=== PATIENT | female | born 1980 | race African-American/Black ===

== ENCOUNTER 2017-02-25 23:21 | Emergency (ER) | payer SELFPAY ==
[~2017-02-25] VITALS: Ht 160 cm; Wt 88.0 kg
[~2017-02-25 23:21] MED LIST: IBUP600T26 PO
[2017-02-25 23:34] VITALS: BP 151/95; PULSE 103; RESP 18; TEMP 98.8; O2SAT 97
--- NOTE | 2017-02-26 04:45 | PD ---
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 Patient states last visit. Was November 28. Patient denies having a period during December or January. Patient states a home test was positive. Patient states yesterday she started noticing some pelvic cramping and then last evening noticed some vaginal bleeding. Patient states she bled quite a bit. Patient states just prior to coming to the emergency room she passed a large amount of tissue. Patient states she flush this. Patient states subsequently she's had some intermittent cramping pain but it has decreased in intensity. Patient is 3 para 1 AB 1. 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 Patient denies any other concerns. Patient takes no medications. PFSH Past Medical History Narrative Medical Ab1; no tobacco use; nursing notes reviewed Medical History: Denies Significant Hx Tetanus Vaccination: Unknown Influenza Vaccination: No ?: LMP: 12/26/16 : 2 Para: 0 Miscarriage: 1 Dilation and Curettage (D&C): Yes Social History Alcohol Use: Yes (rare) Tobacco Use: No Substance Use: No Allergies-Medications (Allergen,Severity, Reaction): Coded Allergies: No Known Allergies (Unverified , 02/26/17) Reported Meds & Prescriptions Reported Meds & Active Scripts Active No Active Prescriptions or Reported Medications Review of Systems Except as stated in HPI: all other systems reviewed are Neg General / Constitutional: No: Fever, Chills HENT: No: Congestion Cardiovascular: No: Chest Pain or Discomfort Gastrointestinal: Positive: Abdominal Pain, No: Nausea, Vomiting Genitourinary: Positive: Pelvic Pain, Vaginal Bleeding, No: Dysuria Musculoskeletal: No: Myalgias, Arthralgias Neurologic: No: Weakness Psychiatric: No: Anxiety Hematologic/Lymphatic: No: Lymph Node Enlargement Physical Exam Narrative GENERAL: Well-developed well-nourished female in no acute distress no respiratory distress SKIN: Warm and dry. HEAD: Normocephalic. EYES: No scleral icterus. No injection or drainage. NECK: Supple, trachea midline. No JVD or lymphadenopathy. CARDIOVASCULAR: Regular rate and rhythm without murmurs, gallops, or rubs. RESPIRATORY: Breath sounds equal bilaterally. No accessory muscle use. GASTROINTESTINAL: Abdomen soft, mild tenderness to direct palpation left lower quadrant without guarding or rebound, nondistended. Pelvic exam: Normal external exam no redness no induration no lesions; speculum exam small amount of blood no tissue no clots and cervical os is open; bimanual exam no adnexal mass or tenderness cervical os is open. MUSCULOSKELETAL: No cyanosis, or edema. BACK: Nontender without obvious deformity. No CVA tenderness. Data Data Last Documented VS Vital Signs Date Time Temp Pulse Resp B/P Pulse Ox O2 Delivery O2 Flow Rate FiO2 02/26/17 07:00 80 17 125/76 99 Room Air 02/25/17 23:34 98.8 Orders Beta Hcg (Quant/Titer) (02/26/17 04:29) Complete Blood Count With Diff (02/26/17 04:29) Basic Metabolic Panel (Bmp) (02/26/17 04:29) Complete Rh (02/26/17 04:29) Urinalysis - C+S If Indicated (02/26/17 04:29) Ed Urine Pregnancytest Poc (02/26/17 04:29) Us Pelvis (Ques Pr/Ect)W Trans (02/26/17 ) Urine Culture (02/26/17 04:46) Labs Laboratory Tests Test 02/26/17 04:46 White Blood Count 8.8 TH/MM3 Red Blood Count 3.77 MIL/MM3 Hemoglobin 10.1 GM/DL Hematocrit 31.1 % Mean Corpuscular Volume 82.4 FL Mean Corpuscular Hemoglobin 26.8 PG Mean Corpuscular Hemoglobin 32.5 % Concent Red Cell Distribution Width 16.1 % Platelet Count 250 TH/MM3 Mean Platelet Volume 9.6 FL Neutrophils (%) (Auto) 60.8 % Lymphocytes (%) (Auto) 29.0 % Monocytes (%) (Auto) 8.2 % Eosinophils (%) (Auto) 0.5 % Basophils (%) (Auto) 1.5 % Neutrophils # (Auto) 5.3 TH/MM3 Lymphocytes # (Auto) 2.6 TH/MM3 Monocytes # (Auto) 0.7 TH/MM3 Eosinophils # (Auto) 0.0 TH/MM3 Basophils # (Auto) 0.1 TH/MM3 CBC Comment DIFF FINAL Differential Comment Urine Color LIGHT-RED Urine Turbidity HAZY Urine pH 6.5 Urine Specific [place] 1.014 Urine Protein TRACE mg/dL Urine Glucose (UA) NEG mg/dL Urine Ketones NEG mg/dL Urine Occult Blood LARGE Urine Nitrite NEG Urine Bilirubin NEG Urine Urobilinogen LESS THAN 2.0 MG/DL Urine Leukocyte Esterase MOD Urine RBC /hpf Urine WBC 15 /hpf Urine Squamous Epithelial 4 /hpf Cells Urine Mucus FEW /lpf Microscopic Urinalysis Comment CULTURE INDICATED Sodium Level 139 MEQ/L Potassium Level 4.1 MEQ/L Chloride Level 107 MEQ/L Carbon Dioxide Level 26.3 MEQ/L Anion Gap 6 MEQ/L Blood Urea Nitrogen 12 MG/DL Creatinine 0.52 MG/DL Estimat Glomerular Filtration 163 ML/MIN Rate Random Glucose 91 MG/DL Calcium Level 8.5 MG/DL Human Chorionic Gonadotropin, 1475 MIU/ML Quant Blood Type O POSITIVE Rho(D) Type POSITIVE MDM Medical Decision Making Medical Screen Exam Complete: Yes Emergency Medical Condition: Yes Medical Record Reviewed: Yes Interpretation(s) POC hCG: Positive quant hc, elevated c/w --not c/w dates (O+) Differential Diagnosis Vaginal bleeding, ectopic , spontaneous AB-threatened versus incomplete versus inevitable versus complete Narrative Course IV access obtained specimens collected and sent for resulting [id number] hCG positive pelvic ultrasound ordered Bedside ultrasound does not identify an intrauterine or heartbeat; quantitative hCG of 1475 is not consistent with dates. Patient presents after crampy pelvic pain with bleeding and passing of large mucoid tissue most likely consistent with spontaneous miscarriage. Presently patient has only scant amount of blood in the vaginal vault and the cervical os is open. No tissue or or clots in the vaginal vault. US tech at bedside; Dr Stringer will follow US findings and patient disposition Diagnosis Primary Impression: Vaginal bleeding Additional Impression: UTI (urinary tract infection) Referrals: Spine Nurse call for appointment Patient Instructions: General Instructions Departure Forms: Tests/Procedures, Work Release Special Instructions: no work x 1 day Scripts No Active Prescriptions or Reported Meds Anette Zavaleta MD Feb 26, 2017 04:45 Anette Zavaleta MD Feb 26, 2017 04:45
[2017-02-26 05:02] LABS: AUTOMATED NEUTROPHIL # 5.3 TH/MM3 (1.8-7.7); BASOPHIL # 0.1 TH/MM3 (0-0.2); BASOPHIL % 1.5 % (0.0-2.0); EOSINOPHIL % 0.5 % (0.0-4.0); HEMATOCRIT 31.1 % (35.0-46.0); HEMO FLAGS DIFF FINAL; LYMPHOCYTE # 2.6 TH/MM3 (1.0-4.8); MEAN CELL VOLUME 82.4 FL (80.0-100.0); MEAN CORPUSCULAR HEMOGLOBIN 26.8 PG (27.0-34.0); MEAN CORPUSCULAR HGB CONC 32.5 % (32.0-36.0); MONO % 8.2 % (0.0-8.0); NEUT % 60.8 % (16.0-70.0); PLATELET COUNT 250 TH/MM3 (150-450); RED BLOOD COUNT 3.77 MIL/MM3 (4.00-5.30); RED CELL DISTRIBUTION WIDTH 16.1 % (11.6-17.2); WHITE BLOOD COUNT 8.8 TH/MM3 (4.0-11.0)
[2017-02-26 05:33] LABS: BICARBONATE 26.3 MEQ/L (21.0-32.0); POTASSIUM 4.1 MEQ/L (3.5-5.1)
[2017-02-26 05:42] LABS: BLOOD, URINE LARGE (NEG); COMMENT (UR) CULTURE INDICATED; CULTURE IF INDICATED CULTURE INDICATED; GLUCOSE,URINE NEG (NEG); KETONE, URINE NEG (NEG); MUCUS URINE FEW /lpf (OCC); NITRITE,URINE NEG (NEG); PH, URINE 6.5 (5.0-8.5); SQUAMOUS EPITHELIAL CELL URINE 4 /hpf (0-5); URINE COLOR LIGHT-RED (YELLW/STRAW)
[2017-02-26 06:40] VITALS: BP 157/89; PULSE 98; RESP 18; O2SAT 100
[2017-02-26 07:00] VITALS: BP 125/76; PULSE 80; RESP 17; O2SAT 99
--- NOTE | 2017-02-26 08:06 | RADRPT ---
EXAM DATE/TIME: 02/26/2017 07:20 [facility] COMPARISON: CT ABDOMEN & PELVIS W/O CONTRAST, June 23, 2016, 18:01. INDICATIONS : Pelvic pain and bleeding. LAB(S): Beta-hC,475 MEDICAL HISTORY : . SURGICAL HISTORY : D&C. ENCOUNTER: Initial ACUITY: 1 day PAIN SCORE: 9/10 LOCATION: Bilateral pelvis MEASUREMENTS: UTERUS: 10.3 x 6.1 x 5.2 cm ENDOMETRIAL STRIPE: 19 mm RIGHT OVARY: 3.8 x 2.7 x 1.7 cm LEFT OVARY: 3.2 x 1.4 x 1.8 cm FREE FLUID: Yes posterior cul de sac and right adnexa FINDINGS: There is free fluid identified in the cul-de-sac and right adnexal region. The endometrium is heterog eneous and thickened. It measures up to 19 mm in maximal thickness. A heterogeneous hypoechoic area i n the endometrial region measuring 3.7 x 1.7 x 2.1 cm is noted with no internal blood flow possibly r epresenting blood products. There is no identifiable gestational sac. At the level of the right ovary 1.3 x 1.2 x 1 cm cyst is noted. It is simple in appearance. Left ovary unremarkable. CONCLUSION: Abnormal thickened heterogeneous endometrium. No identifiable gestational sac. Right ovarian cyst. Terrell Ordonez MD on February 26, 2017 at 8:01 Board Certified Radiologist. This report was verified electronically.
--- NOTE | 2017-02-26 12:03 | PD ---
Data Data Last Documented VS Vital Signs Date Time Temp Pulse Resp B/P Pulse Ox O2 Delivery O2 Flow Rate FiO2 02/26/17 07:00 80 17 125/76 99 Room Air 02/25/17 23:34 98.8 Orders Beta Hcg (Quant/Titer) (02/26/17 04:29) Complete Blood Count With Diff (02/26/17 04:29) Basic Metabolic Panel (Bmp) (02/26/17 04:29) Complete Rh (02/26/17 04:29) Urinalysis - C+S If Indicated (02/26/17 04:29) Ed Urine Pregnancytest Poc (02/26/17 04:29) Us Pelvis (Ques Pr/Ect)W Trans (02/26/17 ) Urine Culture (02/26/17 04:46) Labs Laboratory Tests Test 02/26/17 04:46 White Blood Count 8.8 TH/MM3 Red Blood Count 3.77 MIL/MM3 Hemoglobin 10.1 GM/DL Hematocrit 31.1 % Mean Corpuscular Volume 82.4 FL Mean Corpuscular Hemoglobin 26.8 PG Mean Corpuscular Hemoglobin 32.5 % Concent Red Cell Distribution Width 16.1 % Platelet Count 250 TH/MM3 Mean Platelet Volume 9.6 FL Neutrophils (%) (Auto) 60.8 % Lymphocytes (%) (Auto) 29.0 % Monocytes (%) (Auto) 8.2 % Eosinophils (%) (Auto) 0.5 % Basophils (%) (Auto) 1.5 % Neutrophils # (Auto) 5.3 TH/MM3 Lymphocytes # (Auto) 2.6 TH/MM3 Monocytes # (Auto) 0.7 TH/MM3 Eosinophils # (Auto) 0.0 TH/MM3 Basophils # (Auto) 0.1 TH/MM3 CBC Comment DIFF FINAL Differential Comment Urine Color LIGHT-RED Urine Turbidity HAZY Urine pH 6.5 Urine Specific [place] 1.014 Urine Protein TRACE mg/dL Urine Glucose (UA) NEG mg/dL Urine Ketones NEG mg/dL Urine Occult Blood LARGE Urine Nitrite NEG Urine Bilirubin NEG Urine Urobilinogen LESS THAN 2.0 MG/DL Urine Leukocyte Esterase MOD Urine RBC /hpf Urine WBC 15 /hpf Urine Squamous Epithelial 4 /hpf Cells Urine Mucus FEW /lpf Microscopic Urinalysis Comment CULTURE INDICATED Sodium Level 139 MEQ/L Potassium Level 4.1 MEQ/L Chloride Level 107 MEQ/L Carbon Dioxide Level 26.3 MEQ/L Anion Gap 6 MEQ/L Blood Urea Nitrogen 12 MG/DL Creatinine 0.52 MG/DL Estimat Glomerular Filtration 163 ML/MIN Rate Random Glucose 91 MG/DL Calcium Level 8.5 MG/DL Human Chorionic Gonadotropin, 1475 MIU/ML Quant Blood Type O POSITIVE Rho(D) Type POSITIVE MDM Supervised Visit with CORIE: No Narrative Course This case is checked out to me by Dr. Zavaleta. She had ordered an ultrasound that had not been completed yet. Dr. Zavaleta felt she had a spontaneous miscarriage. She has a titer of 1453 Ultrasound shows no IUP but a thickened endometrium. No adnexal structures suggestive of ectopic. On reassessment of the patient she feels fine. She is not having any pelvic pain or cramps. We discussed ectopic precautions. If she has recurrence of pain or bleeding she will return. Since she has no follow-up and it is a holiday weekend have asked her to come back in 48 hours for repeat examination and repeat beta titer. Diagnosis Primary Impression: Spontaneous miscarriage Referrals: Hepatologist call for appointment Patient Instructions: General Instructions Departure Forms: Work Release, Special Instructions: no work x 1 day Tests/Procedures Additional Instruction: Return in 48 hours for reevaluation Use ectopic precautions as discussed for Heavy bleeding or worse pain return Med/Other Pt SpecificInfo: Other Scripts No Active Prescriptions or Reported Meds Disposition: 01 DISCHARGE HOME Condition: Stable Cruz Stringer MD Feb 26, 2017 12:03
== END 2017-02-26 13:39 | disposition home or self-care (01) ==
LOC: NEPC 23:21
DX: O03.9 Complete or unspecified spontaneous abortion without complication (principal); N39.0 Urinary tract infection, site not specified; B96.89 Other specified bacterial agents as the cause of diseases classified elsewhere
CPT/HCPCS: 76700; 76817; 80048; 81001; 84702; 84703; 85025; 86901; 87086; 99284

== ENCOUNTER 2017-03-03 15:06 | Emergency (ER) | payer SELFPAY ==
[~2017-03-03] VITALS: Ht 157.5 cm; Wt 85.0 kg
[2017-03-03 15:07] VITALS: BP 151/93; PULSE 98; RESP 17; TEMP 98.2; O2SAT 95
--- NOTE | 2017-03-03 15:15 | PD ---
Physical Exam Time Seen by Provider: 15:12 Narrative 36yo F c/o continued vag bleeding after being seen here Monday for miscarriage , Has developed low back pain and cloudy urine which is new. C/o continued abd pain/cramping. Willis fever, vomiting. Patient seen in triage. VS reviewed. Awaiting bed placement. Data Data Last Documented VS Vital Signs Date Time Temp Pulse Resp B/P Pulse Ox O2 Delivery O2 Flow Rate FiO2 03/03/17 15:07 98.2 98 17 151/93 95 MDM Supervised Visit with CORIE: No Scripts No Active Prescriptions or Reported Meds Katy Gaona Mar 03, 2017 15:15
--- NOTE | 2017-03-03 15:37 | PD ---
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 The patient was seen on February 25, 2017 was diagnosed with spontaneous miscarriage. Ultrasound of pelvis showed abnormal thickened heterogeneous endometrium, no identified gestational sac, right ovarian cyst. Patient states that since then, her symptoms have actually improved. She reports decreasing back pain and pelvic pain. Patient states the bleeding has decreased. She states she is normal setting approximately 3 pads per day which is normal for her when she is on her menstrual cycle. No fevers or chills. No chest pain or shortness of breath. She states she has a slight burning with urination. Patient is a history G3, P1. She had one other spontaneous miscarriage. She states that previous miscarriage was actually more painful than this one. She denies any new symptoms. No other complaints. PFSH Past Medical History Medical History: Denies Significant Hx ?: Not : 2 Para: 1 Miscarriage: 1 Dilation and Curettage (D&C): Yes Social History Alcohol Use: Yes (rare) Tobacco Use: No Substance Use: No Allergies-Medications (Allergen,Severity, Reaction): Coded Allergies: No Known Allergies (Unverified , 03/03/17) Reported Meds & Prescriptions Reported Meds & Active Scripts Active No Active Prescriptions or Reported Medications Review of Systems Except as stated in HPI: all other systems reviewed are Neg Physical Exam Narrative GENERAL: Well-nourished, well-developed female patient, ambulatory. Afebrile. SKIN: Focused skin assessment warm/dry. HEAD: Normocephalic. Atraumatic. EYES: No scleral icterus. No injection or drainage. NECK: Supple, trachea midline. No JVD or lymphadenopathy. CARDIOVASCULAR: Regular rate and rhythm without murmurs, gallops, or rubs. RESPIRATORY: Breath sounds equal bilaterally. No accessory muscle use. GASTROINTESTINAL: Abdomen soft, non-tender, nondistended. No abdominal or pelvic pain to palpation. MUSCULOSKELETAL: No cyanosis, or edema. BACK: Nontender without obvious deformity. No CVA tenderness. Data Data Last Documented VS Vital Signs Date Time Temp Pulse Resp B/P Pulse Ox O2 Delivery O2 Flow Rate FiO2 03/03/17 15:07 98.2 98 17 151/93 95 Orders Beta Hcg (Quant/Titer) (03/03/17 15:32) Urinalysis - C+S If Indicated (03/03/17 15:32) Labs Laboratory Tests Test 03/03/17 15:40 Urine Color YELLOW Urine Turbidity CLEAR Urine pH 6.5 Urine Specific [place] 1.028 Urine Protein TRACE mg/dL Urine Glucose (UA) NEG mg/dL Urine Ketones NEG mg/dL Urine Occult Blood SMALL Urine Nitrite NEG Urine Bilirubin NEG Urine Urobilinogen LESS THAN 2.0 MG/DL Urine Leukocyte Esterase MOD Urine RBC 3 /hpf Urine WBC 1 /hpf Urine Squamous Epithelial 2 /hpf Cells Urine Mucus FEW /lpf Microscopic Urinalysis Comment CULT NOT INDICATED Human Chorionic Gonadotropin, 40 MIU/ML Quant MDM Medical Decision Making Medical Screen Exam Complete: Yes Emergency Medical Condition: Yes Medical Record Reviewed: Yes Differential Diagnosis Spontaneous miscarriage versus reexamination versus UTI Narrative Course 36-year-old female presents to the emergency department for reevaluation after being diagnosed with a spontaneous miscarriage on February 25. She states her symptoms are actually improving. She appears well on exam. Beta hCG and UA are ordered and pending. Beta HCG is 40. UA shows moderate leukocyte esterase, 1 WBC. Patient is instructed to follow up with her body and frame technician/radiology aide. She is to return for any acute, worsening of symptoms. The patient was discharged in stable condition with instructions, including return instructions and follow up instructions. Diagnosis Primary Impression: Spontaneous miscarriage Referrals: [facility] call for appointment Patient Instructions: General Instructions, Miscarriage (ED) Additional Instructions: Follow-up with your radiology aide. Return to the emergency department for any acute worsening of symptoms. Med/Other Pt SpecificInfo: No Change to Meds Scripts No Active Prescriptions or Reported Meds Disposition: 01 DISCHARGE HOME Condition: Stable Mara Rollins RAQUEL Mar 03, 2017 15:37
[2017-03-03 16:19] LABS: BLOOD, URINE SMALL (NEG); COMMENT (UR) CULT NOT INDICATED; CULTURE IF INDICATED CULT NOT INDICATED; GLUCOSE,URINE NEG (NEG); KETONE, URINE NEG (NEG); MUCUS URINE FEW /lpf (OCC); NITRITE,URINE NEG (NEG); PH, URINE 6.5 (5.0-8.5); SQUAMOUS EPITHELIAL CELL URINE 2 /hpf (0-5); URINE COLOR YELLOW (YELLW/STRAW)
[2017-03-03 16:33] LABS: BETA HCG QUANT 40 MIU/ML (0-5)
== END 2017-03-03 17:10 | disposition home or self-care (01) ==
LOC: NEPD 15:06
DX: O03.9 Complete or unspecified spontaneous abortion without complication (principal); Z34.01 Encounter for supervision of normal first pregnancy, first trimester
CPT/HCPCS: 81001; 84702; 99283

== ENCOUNTER 2017-08-03 22:53 | Emergency (ER) | payer SELFPAY ==
[~2017-08-03] VITALS: Ht 157.5 cm; Wt 90.0 kg
[2017-08-03 22:55] VITALS: BP 196/97; PULSE 92; RESP 18; TEMP 98.6; O2SAT 97
[2017-08-04] MEDS ORDERED: diphenhydrAMINE HCL ELIXIR 12.5 MG/5 ML CUP PO ONE
[2017-08-04] MEDS ORDERED: LIDOCAINE VISCOUS 2% SOLN 15 ML UDC SWISH-SWAL ONE
[2017-08-04] MEDS ORDERED: ALUMINUM/MAGNESIUM/SIMETH 30 ML CUP PO ONE
--- NOTE | 2017-08-04 00:01 | PD ---
HPI Chief Complaint: ENT Complaint Time Seen by Provider: 23:26 Travel History International Travel<30 days: No Contact w/Intl Traveler<30days: No Traveled to known affect area: No History of Present Illness HPI Pt feels like there is something stuck in her throat and it started 2 hrs ago , she ate rice and Beans with Cod fish but no solid food no beef or chix or pork , the fish was soft and didnt choke during eating. then wretching and blood but . In Ed she is talking in a hoarse voice but no choking no drooling. Didnt take anything for the pain .or choking feeling PFSH Past Medical History ?: Not : 2 Para: 1 Miscarriage: 1 Dilation and Curettage (D&C): Yes Social History Alcohol Use: Yes (rare) Tobacco Use: No Substance Use: No Allergies-Medications (Allergen,Severity, Reaction): Coded Allergies: No Known Allergies (Unverified Adverse Reaction, Unknown, 08/03/17) Reported Meds & Prescriptions Reported Meds & Active Scripts Active Amoxicillin 500 Mg Tab 500 Mg PO BID 5 Days Prednisone 50 Mg Tab 50 Mg PO DAILY Physical Exam Narrative GENERAL: talking in a hoarse voice no drooling no choking SKIN: Warm and dry. HEAD: Atraumatic. Normocephalic. EYES: Pupils equal and round. No scleral icterus. No injection or drainage. ENT: No nasal bleeding or discharge. Mucous membranes pink and moist. NECK: Trachea midline. No JVD. CARDIOVASCULAR: Regular rate and rhythm. RESPIRATORY: No accessory muscle use. Clear to auscultation. Breath sounds equal bilaterally. GASTROINTESTINAL: Abdomen soft, non-tender, nondistended. Hepatic and splenic margins not palpable. MUSCULOSKELETAL: Extremities without clubbing, cyanosis, or edema. No obvious deformities. NEUROLOGICAL: Awake and alert. No obvious cranial nerve deficits. Motor grossly within normal limits. Five out of 5 muscle strength in the arms and legs. Normal speech. PSYCHIATRIC: Appropriate mood and affect; insight and judgment normal. Data Data Last Documented VS Vital Signs Date Time Temp Pulse Resp B/P (MAP) Pulse Ox O2 Delivery O2 Flow Rate FiO2 08/03/17 22:55 98.6 92 18 196/97 (130) 97 Room Air Orders Orders Lidocaine 2% Viscous (Xylocaine 2% Visco (08/04/17 00:00) Diphenhydramine Liq (Benadryl Liq) (08/04/17 00:00) Al-Mag Hy-Si 40-40-4 Mg/Ml Liq (Mag-Al P (08/04/17 00:00) Group A Rapid Strep Screen (08/04/17 00:05) Ct Soft Tiss Neck W/O Iv Cont (08/04/17 ) Strep Culture (Group A) (08/04/17 00:00) Complete Blood Count With Diff (08/04/17 04:16) Comprehensive Metabolic Panel (08/04/17 04:16) Thyroid Stimulating Hormone (08/04/17 04:16) Prednisone (Deltasone) (08/04/17 06:15) Amoxicillin (Trimox) (08/04/17 06:15) Labs Laboratory Tests Test 08/04/17 04:40 White Blood Count 5.9 TH/MM3 Red Blood Count 4.09 MIL/MM3 Hemoglobin 11.3 GM/DL Hematocrit 34.4 % Mean Corpuscular Volume 84.3 FL Mean Corpuscular Hemoglobin 27.6 PG Mean Corpuscular Hemoglobin Concent 32.8 % Red Cell Distribution Width 15.5 % Platelet Count 250 TH/MM3 Mean Platelet Volume 10.2 FL Neutrophils (%) (Auto) 56.1 % Lymphocytes (%) (Auto) 32.6 % Monocytes (%) (Auto) 9.3 % Eosinophils (%) (Auto) 0.9 % Basophils (%) (Auto) 1.1 % Neutrophils # (Auto) 3.3 TH/MM3 Lymphocytes # (Auto) 1.9 TH/MM3 Monocytes # (Auto) 0.5 TH/MM3 Eosinophils # (Auto) 0.1 TH/MM3 Basophils # (Auto) 0.1 TH/MM3 CBC Comment DIFF FINAL Differential Comment Blood Urea Nitrogen 8 MG/DL Creatinine 0.56 MG/DL Random Glucose 88 MG/DL Total Protein 7.6 GM/DL Albumin 3.2 GM/DL Calcium Level 8.4 MG/DL Alkaline Phosphatase 54 U/L Aspartate Amino Transf (AST/SGOT) 15 U/L Alanine Aminotransferase (ALT/SGPT) 25 U/L Total Bilirubin 0.4 MG/DL Sodium Level 140 MEQ/L Potassium Level 4.1 MEQ/L Chloride Level 107 MEQ/L Carbon Dioxide Level 27.2 MEQ/L Anion Gap 6 MEQ/L Estimat Glomerular Filtration Rate 149 ML/MIN Thyroid Stimulating Hormone 3rd Gen 6.020 uIU/ML MDM Medical Decision Making Medical Screen Exam Complete: Yes Emergency Medical Condition: Yes Differential Diagnosis FB very scratched throat vs strep throat pharyngitis , Narrative Course Patient has no signs of obstruction of her esophagus or airway with food matter posterior pharynx is open auscultation of the neck there is no stridor CAT scan of her soft tissue shows no foreign body just the thyroid is heterogeneous. TSH is ordered which is slightly elevated at 6. Patient is given prednisone for any swelling in the throat by mouth as well as amoxicillin by mouth and discharged to follow-up with outpatient ENT Diagnosis Primary Impression: Foreign body sensation in throat Referrals: Gm Haile MD Patient Instructions: General Instructions, Pharyngitis (ED) Additional Instructions: Follow-up with Dr. Haile of ears nose and throat. Take the steroids once a day and antibiotic twice a day for 5 days . . Return for any worsening symptoms Let the ENT doctor know you had a CT of your neck in [facility]. Thyroid levels elevated. Scripts Amoxicillin (Amoxicillin) 500 Mg Tab 500 MG PO BID for Infection for 5 Days, #10 TAB 0 Refills Prov: Adam Meehan MD 08/04/17 Prednisone (Prednisone) 50 Mg Tab 50 MG PO DAILY, #5 TAB 0 Refills Prov: Adam Meehan MD 08/04/17 Disposition: 01 DISCHARGE HOME Condition: Good Adam Meehan MD Aug 04, 2017 00:01
--- NOTE | 2017-08-04 02:27 | RADRPT ---
EXAM DATE/TIME: 08/04/2017 01:55 [facility] COMPARISON: No previous studies available for comparison. INDICATIONS : Raspy voice and feels like something is stuck in her throat. Evaluate for possible foreign body. RADIATION DOSE: 17.35 CTDIvol (mGy) MEDICAL HISTORY : None SURGICAL HISTORY : None. ENCOUNTER: Initial ACUITY: 1 day PAIN SCORE: 3/10 LOCATION: neck TECHNIQUE: Volumetric scanning of the neck was performed. Using automated exposure control and adjustment of th e mA and/or kV according to patient size, radiation dose was kept as low as reasonably achievable to obtain optimal diagnostic quality images. DICOM format image data is available electronically for re view and comparison. FINDINGS: NASOPHARYNX: The nasopharyngeal airway has a normal configuration. No mucosal thickening or mass is seen. OROPHARYNX: The intrinsic muscles of the tongue are symmetric. The tonsillar pillars are intact. The prevertebr al soft tissues are not thickened. LARYNX: The supraglottic, glottic, and infraglottic structures are intact. PARAPHARYNGEAL: The parapharyngeal space is intact. SALIVARY GLANDS: The parotid and submandibular glands are intact. LYMPH NODES: No enlarged or necrotic-appearing nodes. THYROID: Mildly inhomogeneous with left lobe enlargement. BONES: Unremarkable. CONCLUSION: Heterogeneous prominent thyroid gland. Otherwise unremarkable. Terrell Ordonez MD on August 04, 2017 at 2:24 Board Certified Radiologist. This report was verified electronically.
[2017-08-04 04:57] LABS: AUTOMATED NEUTROPHIL # 3.3 TH/MM3 (1.8-7.7); BASOPHIL # 0.1 TH/MM3 (0-0.2); BASOPHIL % 1.1 % (0.0-2.0); EOSINOPHIL # 0.1 TH/MM3 (0-0.4); EOSINOPHIL % 0.9 % (0.0-4.0); HEMATOCRIT 34.4 % (35.0-46.0); HEMO FLAGS DIFF FINAL; LYMPH % 32.6 % (9.0-44.0); LYMPHOCYTE # 1.9 TH/MM3 (1.0-4.8); MEAN CELL VOLUME 84.3 FL (80.0-100.0); MEAN CORPUSCULAR HEMOGLOBIN 27.6 PG (27.0-34.0); MEAN CORPUSCULAR HGB CONC 32.8 % (32.0-36.0); MONO % 9.3 % (0.0-8.0); NEUT % 56.1 % (16.0-70.0); PLATELET COUNT 250 TH/MM3 (150-450); RED BLOOD COUNT 4.09 MIL/MM3 (4.00-5.30); RED CELL DISTRIBUTION WIDTH 15.5 % (11.6-17.2); WHITE BLOOD COUNT 5.9 TH/MM3 (4.0-11.0)
[2017-08-04 05:12] LABS: ALT (GPT) 25 U/L (10-53); ANION GAP 6 MEQ/L (5-15); AST (GOT) 15 U/L (15-37); BICARBONATE 27.2 MEQ/L (21.0-32.0); BLOOD UREA NITROGEN 8 MG/DL (7-18); CHLORIDE 107 MEQ/L (98-107); GLOMERULAR FILTRATION RATE 149 ML/MIN (>89); POTASSIUM 4.1 MEQ/L (3.5-5.1); SODIUM (NA) 140 MEQ/L (136-145)
[2017-08-04 05:22] LABS: ALKALINE PHOSPHATASE 54 U/L (45-117); TOTAL BILIRUBIN ADULT 0.4 MG/DL (0.2-1.0)
[2017-08-04] MEDS ORDERED: AMOX500T PO (06:14)
[2017-08-04] MEDS ORDERED: PRED50 PO (06:14)
[2017-08-04] MEDS ORDERED: predniSONE 50 MG TAB PO ONE (06:15)
[2017-08-04] MEDS ORDERED: AMOXICILLIN (TRIHYDRATE) 500 MG CAP PO ONE (06:15)
== END 2017-08-04 06:47 | disposition home or self-care (01) ==
LOC: NEPE 22:53
DX: R09.89 Other specified symptoms and signs involving the circulatory and respiratory systems (principal); R49.0 Dysphonia
CPT/HCPCS: 70490; 80053; 84443; 85025; 87081; 87880; 99285; J7512

== ENCOUNTER 2017-12-27 17:26 | Emergency (ER) | payer SELFPAY ==
[~2017-12-27] VITALS: Ht 165.1 cm; Wt 100.0 kg
[~2017-12-27 17:26] MED LIST changes: +AMOX500T PO; -IBUP600T26 PO; +PRED50 PO
[2017-12-27 17:32] VITALS: BP 155/80; PULSE 98; RESP 18; TEMP 98.5; O2SAT 100
--- NOTE | 2017-12-27 17:37 | PD ---
HPI Chief Complaint: Injury Time Seen by Provider: 17:35 Travel History International Travel<30 days: No Contact w/Intl Traveler<30days: No Traveled to known affect area: No History of Present Illness HPI 37-year-old female presents emergency department for evaluation of right dorsal foot pain after a slip and fall in a store. Patient states this happened 2 days ago. Pain has been worsening. Denies any focal deficits or weakness. She did not strike her head or lose consciousness. Denies any alterations in sensation. Pain is constant, moderate in severity. PFSH Past Medical History Medical History: Denies Significant Hx ?: Unknown : 2 Para: 1 Miscarriage: 1 Dilation and Curettage (D&C): Yes Social History Alcohol Use: Yes (rare) Tobacco Use: No Substance Use: No Allergies-Medications (Allergen,Severity, Reaction): Coded Allergies: No Known Allergies (Unverified Adverse Reaction, Unknown, 12/27/17) Reported Meds & Prescriptions Reported Meds & Active Scripts Active No Active Prescriptions or Reported Medications Review of Systems Except as stated in HPI: all other systems reviewed are Neg Physical Exam Narrative GENERAL: Well-nourished, well-developed female patient in no acute distress SKIN: Focused skin assessment warm/dry. HEAD: Normocephalic. EYES: No scleral icterus. No injection or drainage. NECK: Supple, trachea midline. No JVD or lymphadenopathy. CARDIOVASCULAR: Regular rate and rhythm without murmurs, gallops, or rubs. RESPIRATORY: Breath sounds equal bilaterally. No accessory muscle use. GASTROINTESTINAL: Abdomen soft, non-tender, nondistended. MUSCULOSKELETAL: No cyanosis, or edema. Tenderness elicited to palpation of the dorsal right foot. Cap refill within normal limits. BACK: Nontender without obvious deformity. No CVA tenderness. Data Data Last Documented VS Vital Signs Date Time Temp Pulse Resp B/P (MAP) Pulse Ox O2 Delivery O2 Flow Rate FiO2 12/27/17 17:32 98.5 98 18 155/80 (105) 100 Orders Orders Foot, Complete ([id number]) (12/27/17 ) Ed Discharge Order (12/27/17 18:10) MDM Medical Decision Making Medical Screen Exam Complete: Yes Emergency Medical Condition: Yes Medical Record Reviewed: Yes Differential Diagnosis Sprain versus fracture versus contusion versus dislocation Narrative Course 37-year-old female patient's emergency department for evaluation right foot pain. X-ray imaging confirms no acute bony abnormality. Patient is counseled on care. She is encouraged to follow-up with podiatry. She agrees to return immediately with any acute worsening symptoms. 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
--- NOTE | 2017-12-27 18:08 | RADRPT ---
EXAM DATE/TIME: 12/27/2017 17:50 [facility] COMPARISON: No previous studies available for comparison. INDICATIONS : Right foot pain after fall. MEDICAL HISTORY : None. SURGICAL HISTORY : None. ENCOUNTER: Initial ACUITY: 1 day PAIN SCORE: 9/10 LOCATION: Right foot, dorsal surface. FINDINGS: Three view examination of the right foot demonstrates no soft tissue swelling, dislocation, or fractu re. The tarsal bones appear intact. The interphalangeal and metatarsophalangeal joints are intact. The calcaneus is intact. Bony mineralization is normal. CONCLUSION: No acute fracture or joint dislocation. Ovidio Arredondo MD on December 27, 2017 at 18:04 Board Certified Radiologist. This report was verified electronically.
== END 2017-12-27 18:15 | disposition home or self-care (01) ==
LOC: NEPK 17:26
DX: S93.601A Unspecified sprain of right foot, initial encounter (principal); W01.0XXA Fall on same level from slipping, tripping and stumbling without subsequent striking against object, initial encounter; Y92.512 Supermarket, store or market as the place of occurrence of the external cause
CPT/HCPCS: 73630; 99283